=== PATIENT | female | born 1980 | race Caucasian/White ===

== ENCOUNTER 2020-07-28 14:00 | Outpatient (REF) | payer OTHER, SELFPAY | END 2020-07-28 14:01 | disposition home or self-care (01) | LOC: HO.LAB 14:00 | PROVIDERS: Visit Provider Obstetrics & Gynecology | DX: R87.810 Cervical high risk human papillomavirus (HPV) DNA test positive (principal) | CPT/HCPCS: 81025; 88305 ==

== ENCOUNTER → 2020-08-11 15:20 | Outpatient (BNVA) | payer OTHER, SELFPAY | PROVIDERS: Visit Provider Obstetrics & Gynecology | DX: Z76.89 Persons encountering health services in other specified circumstances (principal) ==

== ENCOUNTER 2021-07-17 08:26 | Outpatient (REF) | payer OTHER, SELFPAY ==
[2021-07-18 10:34] LABS: CT PCR NOT DETECTED (Not Detect.); NG PCR NOT DETECTED (Not Detect.)
[2021-07-19 14:34] LABS: BV Int Neg Control Negative (Negative); BV Int Pos Control Positive (Positive)
[2021-07-25 09:56] LABS: HPV 16 RNA NOT DETECTED (NOT DETECTED); HPV mRNA E6/E7 rflx Detected (Not Detected)
== END 2021-07-17 08:27 | disposition home or self-care (01) ==
LOC: HO.LAB 08:26
PROVIDERS: PCP Nurse Practitioner Gerontology; Visit Provider Advanced Practice Midwife
DX: Z01.419 Encounter for gynecological examination (general) (routine) without abnormal findings (principal); Z11.51 Encounter for screening for human papillomavirus (HPV); Z11.3 Encounter for screening for infections with a predominantly sexual mode of transmission; Z20.2 Contact with and (suspected) exposure to infections with a predominantly sexual mode of transmission
CPT/HCPCS: 87480; 87491; 87510; 87591; 87624; 87625; 87660; 88142

== ENCOUNTER 2021-09-02 08:59 | Outpatient (REF) | payer OTHER, SELFPAY ==
[2021-09-10 23:06] LABS: HPV 16 RNA NOT DETECTED (NOT DETECTED); HPV mRNA E6/E7 rflx Detected (Not Detected)
== END 2021-09-02 09:00 | disposition home or self-care (01) ==
LOC: HO.LAB 08:59
PROVIDERS: PCP Nurse Practitioner Gerontology; Visit Provider Advanced Practice Midwife
DX: Z01.419 Encounter for gynecological examination (general) (routine) without abnormal findings (principal); Z11.51 Encounter for screening for human papillomavirus (HPV); Z88.1 Allergy status to other antibiotic agents
CPT/HCPCS: 87624; 87625; 88142

== ENCOUNTER 2021-10-08 10:13 | Outpatient (REF) | payer OTHER, SELFPAY | END 2021-10-08 10:14 | disposition home or self-care (01) | LOC: HO.LAB 10:13 | PROVIDERS: PCP Nurse Practitioner Gerontology; Visit Provider Obstetrics & Gynecology | DX: R87.610 Atypical squamous cells of undetermined significance on cytologic smear of cervix (ASC-US) (principal); R87.810 Cervical high risk human papillomavirus (HPV) DNA test positive | CPT/HCPCS: 57454; 81025; 88305 ==

== ENCOUNTER → 2021-10-22 13:51 | Outpatient (BNVA) | payer OTHER, SELFPAY | PROVIDERS: PCP Nurse Practitioner Gerontology; Visit Provider Obstetrics & Gynecology ==

== ENCOUNTER → 2021-11-04 14:44 | Outpatient (BNVA) | payer OTHER, SELFPAY | PROVIDERS: PCP Nurse Practitioner Gerontology; Visit Provider Obstetrics & Gynecology ==

== ENCOUNTER 2021-11-13 06:38 | Day surgery (SDC) | payer OTHER, SELFPAY ==
[2021-11-06 14:14] VITALS: BMI 24.2
--- NOTE | 2021-11-12 09:49 | HO.ANESPROP2 ---
Documented by User: Janelle Smith NP 11/12/21 09:53 HPI - Anesthesia Eval Consult details Narrative: 41yo F Cone LEEP with post cone ECC PMFSH Active Problems Active Problems: All Active Problems (Updated 11/06/21 @ 14:15 by Myriam Madden, RN) Cervical high risk HPV (human papillomavirus) test positive (Acute) Well woman exam with routine gynecological exam (Acute) Cervical cancer screening (Acute) ASCUS with positive high risk HPV cervical (Acute) HORTENCIA I (cervical intraepithelial neoplasia I) (Acute) Past Medical History Medical History Medical history unknown Family History Family History Paternal Grandmother Breast cancer Paternal Grandfather Pancreatic cancer Surgical History Surgical History H/O breast augmentation History of appendectomy History of History of repair of ACL Social History Social History Alcohol intake: current Alcohol intake frequency: holidays/special occasions only Patient Tobacco Use Status: Tobacco use Unknown Advance Directives Information Provided: Yes (brochure mailed) Advance Directives on File: No Sexual orientation: Straight/Heterosexual Gender identity: Female Meds Allergies Allergy/AdvReac Type Severity Reaction Status Date / Time azithromycin Allergy Severe anaphylaxis Verified 11/13/21 06:44 Home Medications Medication Instructions Recorded Confirmed Last Taken Type No Known Home Meds 07/28/20 07/17/21 Unknown History Exam Exam Date and Time: November 12, 2021 0949 Height,Weight and Vital Signs: Height 5 ft 4 in Weight 63.957 kg Assessment and Plan Assessment Anesthesia Assessment: Chart Reviewed Documented by User: Zo Pastor MD 11/13/21 07:54 PMFSH Past Medical History Medical History Medical history unknown Family History Family History Paternal Grandmother Breast cancer Paternal Grandfather Pancreatic cancer Family history of problems with anesthesia: No Surgical History Surgical History H/O breast augmentation History of appendectomy History of History of repair of ACL History of Problems with Anesthesia: No Social History Social History Alcohol intake: current Alcohol intake frequency: holidays/special occasions only Patient Tobacco Use Status: Tobacco use Unknown Advance Directives Information Provided: Yes (brochure mailed) Advance Directives on File: No Sexual orientation: Straight/Heterosexual Gender identity: Female Meds Allergies Allergy/AdvReac Type Severity Reaction Status Date / Time azithromycin Allergy Severe anaphylaxis Verified 11/13/21 06:44 Home Medications Medication Instructions Recorded Confirmed Last Taken Type No Known Home Meds 07/28/20 07/17/21 Unknown History Exam Airway Mallampati Class: II TM Dist: >3cm Neck ROM: Full Assessment and Plan Assessment Anesthesia Assessment: Anesthesia Plan Discussed Final Anesthetic Review Family History of Problems with Anesthesia: No History of Problems with Anesthesia: No NPO: Yes ASA Class: II Final Preanesthetic Review: No Changes in Pt Med Stat, Meds/Allgs Chart Reviewed, Consent Obtained/Reviewed and Anes Risks/Benef Reviewed Patient Risk: Low Procedure Risk: Low Anesthetic Plan Anesthetic Plan: GA Disposition: Standard PACU
[2021-11-13 06:52] VITALS: BP 102/54; PULSE 62; RESP 16; TEMP 36.9; O2SAT 99
[2021-11-13 06:53] LABS: UPreg QC Valid YES
[2021-11-13 06:54] LABS: Urine Pregnancy NEGATIVE (NEGATIVE)
[2021-11-13] MEDS: Lactated Ringers 1,000 ML 100 ML IVCONT (07:07)
--- NOTE | 2021-11-13 07:35 | MHC.SHP ---
Pre-Procedural Eval Section A Date of Service: 11/13/21 The patient is an INPATIENT: No Changes since office visit: No Cold of Flu in the past 2 weeks, No New Medical Problems, No Changes in Medication and No Patient answered all questions The History & Physical has been completed within 30 days and I have reviewed it.: Yes Section B Chief Complaint: mild cervical dysplasia Allergies: Allergies Allergy/AdvReac Type Severity Reaction Status Date / Time azithromycin Allergy Severe anaphylaxis Verified 11/13/21 06:44 Plan Diagnosis/Plan: Unchanged I have reviewed the history and physical and performed a pertinent physical examination on my patient. No changes have occurred unless specified.
[2021-11-13] MEDS: Scopolamine 1.5 MG PATCH.TD.3 TRANSDERMA (08:00)
--- NOTE | 2021-11-13 08:43 | PM.OP ---
Brief Operative Note Date of Service: 11/13/21 Pre-op diagnosis: Persistent HORTENCIA 1 with positive ECC Post-op diagnosis: same Procedure: LEEP CONE with post CONE ECC Surgeon: David Clark MD Anesthesia: MAC, local and other (Paracervical block) Was an Graphic Art Technician used for this Procedure?: No Estimated blood loss (mL): 0 Pathology: other (Cervical cone, Endocx, Post cone ECC) Condition: stable Disposition: other (Home)
--- NOTE | 2021-11-13 08:44 | W.PM.OPN ---
Operative Note Operative Note Date of Service: 11/13/21 Narrative: Preop diagnosis: Persistent HORTENCIA 1 with + ECC Operation: LEEP Cone with post cone ECC Post op diagnosis: same Anesthesia: paracervical block + MAC Complications: none Pathology: Cervical cone with a 12 o'clock suture, endocervix & post cone ECC QBL: minimal Procedure: The patient was put in the dorsal lithotomy position, was prepped and draped in the usual sterile fashion. A sterile speculum was inserted inside the patient vagina. Using Lugol solution the cervix with Dyed with Lugol solution to identifiy the abnormal demarcating line. 10 cc of Marcaine 0.5% with epinephrine were given at 2,4 , 8, and 10 o'clock. Using a medium-size loop wire, the cervical cone was excised followed by the endocervix and post cone ECC . A 12:00 o'clock suture was placed at the cervical cone specimen. Hemostasis was assured using cautery and Monsel solution. All instruments were taken out of the patient's vaginal cavity. the patient tolerated the procedure well and was discharged home with the following instructions: call if temperature is above 100.4, vaginal bleeding, abdominal pain or nausea or vomiting. Follow-up in the office in 2 weeks for postop visit
[2021-11-13 08:50] VITALS: BP 106/52; PULSE 80; RESP 16; TEMP 36.3; O2SAT 100
[2021-11-13 09:00] VITALS: BP 101/51; PULSE 71; RESP 16; O2SAT 100
[2021-11-13] MEDS: ondansetron HCL 4 MG/2 ML VIAL IVPUSH (09:00)
[2021-11-13 09:05] VITALS: BP 97/54; PULSE 70; RESP 17; O2SAT 100
[2021-11-13 09:20] VITALS: BP 99/62; PULSE 65; RESP 18; O2SAT 100
== END 2021-11-13 09:58 | disposition home or self-care (01) ==
PROVIDERS: Nurse Practitioner; PCP Nurse Practitioner Gerontology; Visit Provider Obstetrics & Gynecology
PROC: 0UBC7ZZ Excision of Cervix, Via Natural or Artificial Opening (ICD-10-PCS; CPT 57522; principal; 2021-11-13 08:10)
DX: N87.0 Mild cervical dysplasia (principal); Z88.1 Allergy status to other antibiotic agents
CPT/HCPCS: 57522; 81025; 88305; 88307; 88342; J1100; J2250; J2405; J2550; J3010

== ENCOUNTER → 2021-12-02 14:49 | Outpatient (BNVA) | payer OTHER, SELFPAY | PROVIDERS: PCP Nurse Practitioner Gerontology; Visit Provider Obstetrics & Gynecology ==

== ENCOUNTER 2022-12-08 09:18 | Outpatient (REF) | payer OTHER, SELFPAY ==
[2022-12-09 22:03] LABS: HPV mRNA E6/E7 rflx Not Detected (Not Detected)
== END 2022-12-08 09:19 | disposition home or self-care (01) ==
LOC: HO.LNP 09:18
PROVIDERS: PCP Nurse Practitioner Gerontology; Visit Provider Obstetrics & Gynecology
DX: Z01.419 Encounter for gynecological examination (general) (routine) without abnormal findings (principal); R87.810 Cervical high risk human papillomavirus (HPV) DNA test positive
CPT/HCPCS: 87624; 88142

== ENCOUNTER 2023-12-14 08:34 | Outpatient (AMB) | payer OTHER, SELFPAY ==
[2023-12-14 08:47] VITALS: BP 108/68; BMI 22.7
--- NOTE | 2023-12-14 08:47 | A.OFFVIS_ITS ---
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 No complaints. Last Pap/HPV was in 12/30 was negative Last Mammogram was in 03/01 at [facility] was negative according to the patient, report not available [facility] Medical History Medical history unknown HORTENCIA I (cervical intraepithelial neoplasia I) Surgical History H/O breast augmentation History of repair of ACL History of History of appendectomy Family History Paternal Grandmother Breast cancer Paternal Grandfather Pancreatic cancer Social History Household Members Other:: daughter Housing: House Alcohol intake: current Alcohol intake frequency: holidays/special occasions only Patient Tobacco Use Status: Never used Tobacco Patient : No service: No Current occupational status: employed Current occupation: Pharmacy Sexual orientation: Straight/Heterosexual Gender identity: Female Female Reproductive History Menstrual Age of Menarche: 13 Duration of menses: 3-5 days control method: none Total pregnancies: 2 Full term: 1 Ab induced: 1 Date of last pap smear: 12/08/22 History of abnormal pap smear: No History of STI: No Review of Systems Const All systems reviewed & are unremarkable except as noted in HPI and below Card Reports as per HPI Resp Reports as per HPI GI Reports as per HPI and Reports no additional complaints Reports as per HPI Physical Exam Vital Signs: Last Vital Signs BP 108/68 12/14/23 08:47 BMI result Body Mass Index 22.7 Const General: cooperative, healthy appearing and comfortable Chest Chest palpation & inspection: normal inspection of the chest and normal palpation of entire chest wall Breast/axilla inspection: normal inspection of the breasts and normal inspection of the axillae Breast/axilla palpation: normal palpation of the breasts, normal palpation of the axillae and no axillary lymphadenopathy Resp Effort & Inspection: normal respiratory effort Auscultation: clear to auscultation bilaterally Percussion: percussion normal Cardio Palpation: normal PMI Rate: regular rate Rhythm: regular rhythm Heart sounds: no murmurs and no rubs Peripheral pulses: Peripheral pulses 2+ throughout GI Inspection: Yes normal to inspection Palpation (GI): Soft to palpation, nontender, no guarding, not rigid and No hepatosplenomegaly present Percussion: Yes normal to percussion Auscultation: normal bowel sounds Rectal Exam - Female: deferred General: Yes bladder normal to palpation External Female Exam: No lesion Speculum Exam - Vagina: normal appearance of the vagina, normal palpation, normal vaginal discharge and not erythematous Speculum Exam - Cervix: normal appearance of the cervix and normal palpation Bimanual exam- vagina & uterus: normal bimanual exam, normal palpation, uterine size normal, bladder normal to palpation, consistency normal and normal palpation Bimanual Exam- Adnexa, other: normal adnexae, no masses and no tenderness Assessment & Plan Assessment & Plan (1) Well woman exam with routine gynecological exam: Comment: History of persistent HORTENCIA 1 status post LEEP cone with post cone ECC in 12/01 12/30 co testing negative Code(s): Z01.419 - Encounter for gynecological examination (general) (routine) without abnormal findings Plan: Cotesting not indicated this year, recommended co testing in 01/02 per ASCCP guidelines. Instructions given the patient to schedule next screening Mammogram in 03/02. Counseled the patient about the recommended dietary allowance of 1000 mg of Calcium & 600 IU of vitamin D. The patient was instructed to perform monthly self-breast exams and to schedule an annual exam in a year; All questions answered and the patient verbalized understanding. Instructed the patient to schedule annual exam in a year Coding Level of Care Code Est Pt Prev Care 40-64y(02809) Diagnoses Well woman exam with routine gynecological exam Z01.419
== END 2023-12-14 09:16 | disposition home or self-care (01) ==
LOC: HO.HWS 08:34
PROVIDERS: PCP Nurse Practitioner Gerontology; Visit Provider Obstetrics & Gynecology
DX: Z01.419 Encounter for gynecological examination (general) (routine) without abnormal findings (principal)
CPT/HCPCS: 99396

== ENCOUNTER → 2023-12-14 08:34 | Outpatient (BNVA) | payer OTHER, SELFPAY | PROVIDERS: PCP Nurse Practitioner Gerontology; Visit Provider Obstetrics & Gynecology | DX: Z01.419 Encounter for gynecological examination (general) (routine) without abnormal findings (principal) | CPT/HCPCS: 99396 ==

== ENCOUNTER 2025-02-04 09:17 | Outpatient (AMB) | payer BC, SELFPAY ==
--- NOTE | 2025-02-04 09:30 | MHC.OFFVIS ---
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 No complaints. Last Pap/HPV was in 12/30 was negative Last Mammogram was in 03/01 at [facility] was negative according to the patient, report not available No previous screening colonoscopy, the patient is schedule GI for screening colonoscopy according to her [facility] Medical History Medical history unknown JAY I (cervical intraepithelial neoplasia I) Surgical History H/O breast augmentation History of repair of ACL History of History of appendectomy Family History Paternal Grandmother Breast cancer Paternal Grandfather Pancreatic cancer Social History Household Members Other:: daughter Housing: House Alcohol intake: current Alcohol intake frequency: holidays/special occasions only Patient Tobacco Use Status: Never used Tobacco service: No Current occupational status: employed Current occupation: Pharmacy Sexual orientation: Straight/Heterosexual Gender identity: Female Female Reproductive History Menstrual Age of Menarche: 13 Total pregnancies: 2 Full term: 1 Number of Living Children: 1 Ab induced: 1 Date of last pap smear: 12/08/22 (neg pap and hpv) History of abnormal pap smear: Yes (07/29colpo cin1 07/30 unst +hpv 08/30 ascus +hpv 09/29 colpo jay 1 11/30leep) Review of Systems Const All systems reviewed & are unremarkable except as noted in HPI and below Card Reports as per HPI Resp Reports as per HPI GI Reports as per HPI and Reports no additional complaints Reports as per HPI Physical Exam Vital Signs: Last Vital Signs BP 100/60 02/04/25 09:31 BMI result Body Mass Index 24.6 Const General: cooperative, healthy appearing and comfortable Chest Chest palpation & inspection: normal inspection of the chest and normal palpation of entire chest wall Breast/axilla inspection: normal inspection of the breasts and normal inspection of the axillae Breast/axilla palpation: normal palpation of the breasts, normal palpation of the axillae and no axillary lymphadenopathy Resp Effort & Inspection: normal respiratory effort Auscultation: clear to auscultation bilaterally Percussion: percussion normal Cardio Palpation: normal PMI Rate: regular rate Rhythm: regular rhythm Heart sounds: no murmurs and no rubs Peripheral pulses: Peripheral pulses 2+ throughout GI Inspection: Yes normal to inspection Palpation (GI): Soft to palpation, nontender, no guarding, not rigid and No hepatosplenomegaly present Percussion: Yes normal to percussion Auscultation: normal bowel sounds Rectal Exam - Female: deferred General: Yes bladder normal to palpation External Female Exam: No lesion Speculum Exam - Vagina: normal appearance of the vagina, normal palpation, normal vaginal discharge and not erythematous Speculum Exam - Cervix: normal appearance of the cervix and normal palpation Bimanual exam- vagina & uterus: normal bimanual exam, normal palpation, uterine size normal, bladder normal to palpation, consistency normal and normal palpation Bimanual Exam- Adnexa, other: normal adnexae, no masses and no tenderness Assessment & Plan Assessment & Plan (1) Well woman exam with routine gynecological exam: Comment: History of persistent JAY 1 status post LEEP cone with post cone ECC in 12/01 12/30 co testing negative Code(s): Z01.419 - Encounter for gynecological examination (general) (routine) without abnormal findings Category: Medical Plan: Cotesting not indicated this year. Instructions given to patient to schedule next screening Mammogram in 03/02 . Counseled the patient about the recommended dietary allowance of 1000 mg of Calcium & 600 IU of vitamin D. The patient is scheduled with GI for screening colonoscopy The patient was instructed to perform monthly self-breast exams and to schedule an annual exam in a year; All questions answered and the patient verbalized understanding. Instructed the patient to schedule annual exam in a year Orders: Referrals Gastroenterology Referral Z12.11 - Encounter for screening for malignant neoplasm of colon Coding Level of Care Code Est Pt Prev Care 40-64y(33891) Diagnoses Well woman exam with routine gynecological exam Z01.419
[2025-02-04 09:31] VITALS: BP 100/60; BMI 24.6
--- OUTSIDE RECORDS SUMMARY | 2025-02-04 10:12 | XMS_ITS | Encounter Summary ---
Author Organization [facility]ly [facility] Address [address] [place] [id number] Care Team Providers Care Resistor Tester Name Role Phone Unavailable Primary Care Provider Unavailabl e Encounter Details Date Type Department Care Team (Latest Contact Info) Description 01/19/2021 Lab Requisition [facility] [address] Through [address] [place] [address] [address] [place] [address] Danilo Rodriguez MD [address] [place] [address] Encounter for laboratory testing for COVID-19 virus Social History Tobacco Use Types Packs/Day Years Used Date Smoking Tobacco: Never Assessed Comments Unknown Sex and Gender Information Value Date Recorded Sex Assigned at Not on file Legal Sex Female 6:49 PM EST Gender Identity Not on file Sexual Orientation Not on file documented as of this encounter Plan of Treatment Not on file documented as of this encounter Procedures Procedure Name Priority Date/Time Associated Diagnosis Comments COVID-19 (SARS-COV-2) JOSE Routine 01/19/2021 10:48 AM EDT Encounter for laboratory testing for COVID-19 virus [ICD-10-CM] documented in this encounter Results * COVID-19 (SARS-CoV-2), JOSE (In-House) (01/19/2021 10:48 AM EDT) SARS CoV 2 Not Detected Not Detected 01/19/2021 2:10 PM EDT [facility] Comment: Negative results do not preclude SARS-CoV-2 (COVID-19)infection and should not be used as the sole basis for treatment or other patient management decisions. The SARS-CoV-2 (Covid-19) Nucleic Acid Amplification Assay is limited to laboratories certified under the Clinical Laboratory Improvement Amendments of 1988 (CLIA), 42 U.S.C. 263a, to perform high complexity tests. Nucleic acid amplication tests include RT-PCR and TMA. This assay has not been FDA cleared or approved, however, this assay has been authorized by the Food and Drug Administration (FDA) under an Emergency Use Authorization (EUA). ??Validation was completed and performance characteristics established by [facility] as per the FDA and CLIA requirement for this EUA. The Aptima SARS-CoV-2 assay Letter of Authorization, along with the authorized Fact Sheet for Healthcare Providers, the authorized Fact Sheet for Patients, and authorized labeling are available on the FDA website: https://www.fda.gov/medical-devices/qtcvoekzb-pgadxdokeh-qaqwbqf-devices/emergen - k-cudzqvgvsuubsm-ivmjvrv-devices. Performed at [facility], [place], [place] ??[place] License [id number] ??CLIA [id number] Source Nasopharyngeal 01/19/2021 2:10 PM EDT [facility] [place] Comment:Performed at [place], [place] license No. [id number] CLIA No. [id number] Microbiology Nasopharyngeal swab / Unknown 01/19/2021 10:48 AM EDT 01/19/2021 10:48 AM EDT us Danilo Rodriguez MD MICROBIOLOGY - GENERAL ORDER ROMANA Final Result [facility] [address] [place] [address] documented in this encounter Visit Diagnoses Diagnosis Encounter for laboratory testing for COVID-19 virus documented in this encounter
--- OUTSIDE RECORDS SUMMARY | 2025-02-04 10:12 | XMS_ITS | Clinical Summary ---
Author Organization [facility] Address [address] [place] [address] Care Team Providers Care Division Operations Specialist Name Role Phone Unavailable Primary Care Provider Unavailabl e Social History Tobacco Use Types Packs/Day Years Used Date Smoking Tobacco: Never Assessed Comments Unknown Sex and Gender Information Value Date Recorded Sex Assigned at Not on file Legal Sex Female 6:49 PM EST Gender Identity Not on file Sexual Orientation Not on file Plan of Treatment Health Maintenance Due Date Last Done Comments Hepatitis C Virus Screening 1979 HIV Screening 1992 DTaP/Tdap/Td Vaccines (1 - Tdap) 1998 Hepatitis B Vaccines (1 of 3 - 19+ 3-dose series) 1998 Pap Smear (Ages 21-65) 2000 Mammogram 2019 Influenza Vaccine 05/10/2024 COVID-19 Vaccine (1 - 2023-2 5 season) 2024 Colonoscopy 2024 HPV Vaccines Aged Out No longer eligi ble based on patient's age to complete this topic Pneumococcal Vaccine: Pediat jose (0-5 Years) and At-Risk Patients (6 to 49 Years) Aged Out No longer eligible b ased on patient's age to complete this topic Insurance [facility]
== END 2025-02-04 09:52 | disposition home or self-care (01) ==
LOC: HO.HWS 09:17
PROVIDERS: PCP Nurse Practitioner Gerontology; Visit Provider Obstetrics & Gynecology
DX: Z01.419 Encounter for gynecological examination (general) (routine) without abnormal findings (principal)
CPT/HCPCS: 99396; 99459